=== PATIENT | female | born 1990 | race African-American/Black ===

== ENCOUNTER 2022-04-09 11:01 | Outpatient (CLI) | payer BC, SELFPAY ==
--- NOTE | ~2022-04-09 | US_ITS ---
EXAMINATION: US OB follow up DATE: 04/09/2022 12:05 INDICATION: with inconclusive viability, second trimester TECHNIQUE: Real-time ultrasound of the pelvis was performed. The interpreting radiologist was not pre sent for the study. COMPARISON: None. FINDINGS: There is a single living fetus in variable presentation. The placenta is fundal and 4.1 cm from the internal cervical os. The cervical length is 4.8 cm cardiac activity and movemen t are noted. heart rate is 147 beats per minute (bpm). The amniotic fluid index is subjectively normal. The following biometric data were obtained: Biparietal diameter (BPD): 3.0 cm; head circumference (HC): 11.1 cm; abdominal circumference (AC): 9. 8 cm; femur length (FL): 1.8 cm. These measurements are concordant. Estimated weight is 126 g +/- 18 g, which correlates with the 10th percentile when 09/23/2022 is used as estimated date of delivery. As single measurements, these parameters are each equal to the following estimated gestational ages w ith ranges of +/- 2 standard deviations: BPD: 15 weeks 3 days +/- 1 weeks 1 days. HC: 15 weeks 2 days +/- 1 weeks 1 days. AC: 15 weeks 6 days +/- 1 weeks 5 days. FL: 15 weeks 2 days +/- 1 weeks 3 days. estimated gestational age based solely on measurements from this exam is 15 weeks 3 days +/- 1 weeks 1 days. IMPRESSION: 1. Single living fetus in variable presentation. 2. Estimated weight is 126 g +/- 18 g, which correlates with the 10th percentile when 09/23/2022 is used as estimated date of delivery. Reviewed, dictated and finalized at location B. [facility] [employer] IMPRESSION: 1. Single living fetus in variable presentation. 2. Estimated weight is 126 g +/- 18 g, which correlates with the 10th per centile when 09/23/2022 is used as estimated date of delivery.
== END 2022-04-09 11:02 | disposition home or self-care (01) ==
PROVIDERS: Visit Provider Obstetrics & Gynecology
DX: O36.80X0 Pregnancy with inconclusive fetal viability, not applicable or unspecified (principal)
CPT/HCPCS: 76816